=== PATIENT | male | born 1965 | race Caucasian/White ===

== ENCOUNTER 2017-12-08 20:56 | Emergency (ER) | payer OTHER ==
[2017-12-08 21:08] VITALS: RESP 16
--- NOTE | 2017-12-08 22:47 | EDPHY ---
H & P Time Seen by Provider: 12/08/17 21:25 HPI/ROS: This patient was using scissors to cut the top of a gal milk jug off in anticipation of a camping trip when this is or slipped and caused a laceration to the dorsum of his left 4th finger at the PIP joint with mild pain in bleeding. He reports no other associated symptoms. Incident occurred shortly prior to [facility] accompanied by his girlfriend for further evaluation. ROS: Neuro: No numbness or tingling Musculoskeletal: No bony pain Integumentary: No feeling of foreign body 5 point ROS is otherwise negative. Past Medical/Surgical History: Otherwise healthy. He believes he had a tetanus shot within the last 7 years Smoking Status: Never smoked Physical Exam: Physical Exam Vital signs are normal. General: No acute distress Lungs: No respiratory distress. Cardiac: Brisk capillary refill is intact throughout. Pulses are 2+ and symmetric in the affected extremity. Skin: No rash or pallor. Extremities: Atraumatic normal except for left index finger Left index finger: Patient has a 1 cm full-thickness laceration over the dorsum of the PIP joint. The joint capsules intact. The tendon is on injured on direct examination the tendon sheath is intact. The wound appears to only involve the skin. There is mild bleeding. No foreign bodies. Neuro: Alert and oriented x3 with no sensorimotor deficits. Constitutional: Initial Vital Signs Temperature (C) 37 C 12/08/17 21:05 Heart Rate 76 12/08/17 21:05 Respiratory Rate 16 12/08/17 21:05 Blood Pressure 127/75 H 12/08/17 21:05 O2 Sat (%) 92 12/08/17 21:05 O2 Delivery Mode Room Air Allergies/Adverse Reactions: No Known Allergies Allergy (Unverified 12/08/17 21:08) Home Medications: Medication Instructions Recorded Flonase Nasal [place] 12/08/17 MDM/Departure - MDM Procedures: Digital block: After verbal consent, using a 50 50 mix of 0.5% Marcaine 2% plain lidocaine, 27 gauge needle, chlorhexidine scrub under sterile conditions- 3 injections were administered to the base of the affected finger, 8 mL with good effect. Patient tolerated this well. There were no complications. The wound is 1 cm, described physical exam. The wound was copiously irrigated with saline. The wound was explored for foreign bodies and none were found. The wound was prepped and draped in the normal sterile fashion. The edges were reapproximated using 4 0 Prolene, 4 running sutures with good hemostasis and cosmesis. The patient tolerated the procedure well. There were no complications. Tube gauze was applied by our tech. ED Course/Re-evaluation: Discussion: Uncomplicated finger laceration without evidence of neurovascular compromise. - Depart Disposition: Home, Routine, Self-Care Clinical Impression: Finger laceration Qualifiers: Encounter type: initial encounter Finger: ring finger Damage to nail status: without damage Foreign body presence: without foreign body Laterality: left Qualified Code(s): S61.215A - Laceration without foreign body of left ring finger without damage to nail, initial encounter Condition: Good Instructions: Finger Laceration (ED) Additional Instructions: Diagnosis: Finger laceration Plan: Keep the wound clean and dry for the 1st 2 days. Then removed the dressing and clean daily with soap and water. Return for suture removal in 10-12 days Tylenol or ibuprofen if needed for pain. See a clinician sooner if you develops redness, discharge or other concerns for infection. Referrals: NONE *PRIMARY CARE P,. [Primary Care Provider] - As per Instructions
[2017-12-08] MEDS ORDERED: TDAP ADULT 0.5 ML INJ (BOOSTRIX) IM ONE (23:00)
[2017-12-08 23:06] VITALS: BP 119/82; PULSE 95; TEMP 97.9; O2SAT 95
== END 2017-12-08 23:08 | disposition home or self-care (01) ==
LOC: CED 20:56
PROC: 0HQGXZZ Repair Left Hand Skin, External Approach (ICD-10-PCS; principal; 2017-12-08)
DX: S61.215A Laceration without foreign body of left ring finger without damage to nail, initial encounter (principal); Z23 Encounter for immunization; W27.2XXA Contact with scissors, initial encounter